=== PATIENT | male | born 1990 | race Caucasian/White ===

== ENCOUNTER 2019-07-28 13:47 | Emergency (ER) | payer OTHER, SELFPAY ==
--- NOTE | ~2019-07-28 | CT_ITS ---
EXAMINATION: CT abdomen pelvis w con DATE: 07/28/2019 14:43 INDICATION: Right lower abdominal pain TECHNIQUE: Computed tomography (CT) of the abdomen and pelvis was performed with 100 mL Omnipaque-350 intravenous contrast. Automated exposure control and iterative reconstruction technique were employe d. The dose-length product was 745.58 mGy-cm. COMPARISON: None FINDINGS: Mild dependent atelectasis in the bilateral lower lobes. Heart size is normal. No pericardial or pleu ral effusion. Diffuse hepatic steatosis with focal sparing along the gallbladder fossa. Gallbladder, spleen, pancreas, bilateral adrenal glands and kidneys are normal. There is a collateral vessel exten ding over the cephalad margin of the right kidney which appears to connect a right portal vein with t he inferior vena cava. Normal appendix. There is inflammatory stranding in the fat along the anterior aspect of the ascending colon suspicious for either epiploic appendagitis or more likely focal oment al infarction. Bowels are otherwise normal with no wall thickening or obstruction. Bladder is normal. Postoperative changes along the lower anterior pelvic wall extending across the axis of the bilatera l inguinal canals likely of prior bilateral inguinal hernia repair. Small amount of likely reactive a scites in the pelvis. No abscess or free intraperitoneal gas. No pathologically enlarged abdominal or pelvic lymphadenopathy. Mild thoracolumbar spondylosis. There are a couple bone islands in the left innominate bone. IMPRESSION: 1. Inflammatory stranding in the fat anterior to the normal-appearing ascending colon most likely eit her focal omental infarct or epiploic appendagitis. 2. Diffuse hepatic steatosis. Reviewed, dictated and finalized at location A. IMPRESSION: 1. Inflammatory stranding in the fat anterior to the normal-appearing ascending colon most likely either focal omental infarct or epiploic appendagitis. 2. Diffuse hepatic steatosis.
[2019-07-28 13:51] VITALS: BP 149/92; PULSE 78; RESP 18; TEMP 36.9; O2SAT 100
--- NOTE | 2019-07-28 14:10 | ED.ABDPAIN ---
HPI - Abdominal Pain General Chief Complaint: Abdominal Pain Stated Complaint: right lower abdominal pain Time Seen by Provider: 07/28/19 14:03 Source: patient and RN notes reviewed Mode of arrival: ambulatory Limitations: no limitations History of Present Illness HPI narrative: Pt is a 28 y/o male who presents to the ED with c/o RLQ pain starting 2 days ago. He notes that his pain doesn't radiate anywhere, and states that his pain is aggravated with movement. Pt notes that he was constipated yesterday, but states that he began having diarrhea earlier today. He also reports nausea, ABD bloating, and a decreased intake, but denies any vomiting, dysuria, hematuria, penile discharge, or testicular pain. Pt notes that he took Ibuprofen and [place] for his symptoms earlier this morning. He currently rates his pain at 9/10. MD elicited complaint: abdominal pain Onset (ago): day(s) (2) Location: RLQ Pain scale (0-10): 9 Radiation: none Exacerbating factors: movement Associated symptoms: nausea, diarrhea, constipation (resolved) and other (ABD bloating; decreased intake) Treatments prior to arrival: NSAIDs (Ibuprofen) Related Data Allergies Allergy/AdvReac Type Severity Reaction Status Date / Time No Known Allergies Allergy Verified 07/28/19 14:00 Review of Systems Review of Systems: All systems reviewed & are unremarkable except as noted in HPI and below Constitutional: Constitutional: Reports other (decreased intake) Gastrointestinal: Gastrointestinal: Reports abdominal pain (RLQ pain), Reports bloating, Reports constipation (resolved), Reports diarrhea, Reports nausea and Denies vomiting Genitourinary: Genitourinary: Denies hematuria, Denies dysuria, Denies penile discharge and Denies testicular pain PMFSH Past Medical History Medical History Hernia Surgical History Surgical History Hx of hernia repair Social History Social History Smoking status: Unknown if ever smoked Gender identity (if verbalized by the patient): Male Exam Narrative: Exam Narrative: GENERAL: Well-appearing, well-nourished, and in no acute distress. HEAD: Normocephalic, atraumatic EYES: PERRLA and EOMI, conjunctiva clear without discharge THROAT:Mucous membranes moist, Oropharynx normal without erythema, exudate, peritonsillar swelling or fluctuance NECK: Supple, without lymphadenopathy or mass RESPIRATORY: No respiratory distress, Airway patent, Respirations non-labored, Clear to auscultation without rales, rhonchi or wheeze HEART: Regular rate and rhythm. No murmur heard. Normal peripheral pulses. ABDOMEN: Soft, right lower lateral abdominal tenderness, mild, nondistended, normal active bowel sounds. No masses. No rebound or guarding, No organomegaly. EXTREMITIES: No edema, normal strength with full range of motion. SKIN: Warm, dry, normal color without rash NEURO: Alert and oriented x3. CN 2-12 grossly intact. No focal deficits. PSYCH: Normal mood and affect. Course Reevaluation(s) Reevaluation #1: I have discussed with patient diagnosis and treatment plan. Date: 07/28/19 Time: 15:07 Vital Signs Vital signs: Vital Signs Temperature 98.4 F 07/28/19 13:51 Pulse Rate 78 07/28/19 13:51 Respiratory Rate 18 07/28/19 13:51 Blood Pressure 149/92 H 07/28/19 13:51 Pulse Oximetry 100 07/28/19 13:51 Temperature 98.4 F 07/28/19 13:51 Pulse Rate 65 07/28/19 15:26 Respiratory Rate 16 07/28/19 15:26 Blood Pressure 128/87 07/28/19 15:26 Pulse Oximetry 99 07/28/19 15:26 MDM - Abdominal Pain Differential Diagnosis Differential diagnosis: Likely abdominal pain, acute appendicitis, calculus of kidney and diverticulitis Lab Data Attestation: I reviewed the patient's lab results. Result diagrams: 07/28/19 14:19 07/28/19 14:19
[2019-07-28] MEDS: HYDROMORPHONE HCL 1 MG/ML INJ IV PUSH (14:27)
[2019-07-28] MEDS: LACTATED RINGERS 1,000 ML 999 ML IV CONT (14:27)
[2019-07-28] MEDS: ONDANSETRON INJ 4 MG/2 ML VIAL IV PUSH (14:28)
[2019-07-28 14:30] LABS: Basophils Percent Auto 0.5 % (0.2-1.2); Eosinophils Absolute Auto 0.1 K/mm3 (0-0.3); Eosinophils Percent Auto 1.6 % (0-4.4); Hematocrit 43.8 % (42.0-52.0); Hemoglobin 15.6 g/dL (14.0-18.0); Immature Granulocyte Absolute 0.02 K/mm3 (0.00-0.031); Immature Granulocyte Percent A 0.3 % (0-0.5); Lymphocytes Absolute Auto 2.28 K/mm3 (0.9-3.2); Lymphocytes Percent Auto 28.6 % (18.3-44.2); Mean Corpuscular HGB Conc 35.6 g/dl (32-36); Mean Corpuscular Volume 89.8 fl (80-100); Mean Platelet Volume 9.8 fl (7.4-10.4); Monocytes Absolute Auto 0.7 K/mm3 (0.1-0.6); Monocytes Percent Auto 8.8 % (2.6-8.5); Neutrophils Absolute Auto 4.8 K/mm3 (1.3-6.7); Neutrophils Percent Auto 60.2 % (45.5-73.1); Platelet Count Result 280 k/mm3 (150-375); Red Blood Count 4.88 M/mm3 (4.6-6.20); Red Cell Distribution Width 12.1 % (11.5-14.5)
[2019-07-28 14:34] LABS: Add Urine Microscopic? NO; Appearance Urine Clear (Clear); Bilirubin Urine Negative (Negative); Blood Urine Negative (Negative); Color Urine Straw (Yellow); Glucose Urine UA Negative (Negative); Ketones Urine Negative (Negative); Leukocyte Esterase Ur Negative LEU/UL (Negative); Nitrate Urine Negative (Negative); Protein Urine Negative (Negative); Specific Grav Ur 1.014 (1.001-1.035); Urobilinogen Urine Negative mg/dL (<2.0)
[2019-07-28 14:42] LABS: Alanine Aminotransferase 85 U/L (4-50); Albumin Level 4.8 g/dL (3.5-5.1); Alkaline Phosphatase 70 U/L (38-126); Aspartate Amino Transferase 40 U/L (17-59); Bilirubin,Total 0.5 mg/dL (0.2-1.3); Blood Urea Nitrogen 12 mg/dL (9-20); Calcium 9.6 mg/dL (8.4-10.2); Carbon Dioxide 32 mmol/L (22-30); Chloride 101 mmol/L (98-107); Estimated CRCL calculation 112 ml/min; Estimated Glomerular Filt Rate > 60; Glucose 93 mg/dL (75-110); Lipase 44 U/L (23-300); Potassium 3.7 mmol/L (3.4-5.0); Sodium 140 mmol/L (137-145)
[2019-07-28 15:26] VITALS: BP 128/87; PULSE 65; RESP 16; O2SAT 99
== END 2019-07-28 15:33 | disposition home or self-care (01) ==
PROVIDERS: Emergency Provider General Practice
DX: Q43.8 Other specified congenital malformations of intestine (principal); K76.0 Fatty (change of) liver, not elsewhere classified
CPT/HCPCS: 36415; 74177; 80053; 81003; 83690; 85025; 96361; 96374; 96375; 99284; J1170; J2405; J7120; Q9967